=== PATIENT | female | born 1985 | race Caucasian/White ===

== ENCOUNTER 2024-03-17 10:29 | Emergency (ER) | payer OTHER ==
[~2024-03-17] VITALS: Ht 167.6 cm; Wt 82.0 kg
[2024-03-17 10:36] VITALS: O2SAT 97
[2024-03-17] MEDS: ACETAMINOPHEN 325MG TABLET PO ONE (12:16)
[2024-03-17] MEDS ORDERED: NAPR-681 MT (13:50)
[2024-03-17 14:25] VITALS: BP 128/78; PULSE 89; RESP 16; TEMP 98.1
== END 2024-03-17 14:26 | disposition home or self-care (01) ==
LOC: ER 10:29
DX: S93.401A Sprain of unspecified ligament of right ankle, initial encounter (principal); K80.20 Calculus of gallbladder without cholecystitis without obstruction; Z98.890 Other specified postprocedural states; Z90.49 Acquired absence of other specified parts of digestive tract; W01.0XXA Fall on same level from slipping, tripping and stumbling without subsequent striking against object, initial encounter; Y93.89 Activity, other specified; Y92.89 Other specified places as the place of occurrence of the external cause; Y99.8 Other external cause status
CPT/HCPCS: 73562; 73610; 73630; 99284; Z7610